=== PATIENT | male | born 1985 | race Caucasian/White ===

== ENCOUNTER 2019-06-25 13:08 | Emergency (ER) | payer OTHER ==
[~2019-06-25] VITALS: Ht 188 cm; Wt 106.6 kg
[2019-06-25 13:15] VITALS: Ht 188 cm; Wt 106.6 kg
[2019-06-25 14:50] VITALS: BP 127/75
== END 2019-06-25 14:50 | disposition home or self-care (01) ==
LOC: ED 13:08
DX: S63.502A Unspecified sprain of left wrist, initial encounter (principal); X58.XXXA Exposure to other specified factors, initial encounter; Y93.89 Activity, other specified; Y92.89 Other specified places as the place of occurrence of the external cause; Y99.8 Other external cause status